=== PATIENT | male | born 1990 | race Asian ===

== ENCOUNTER 2023-01-21 14:52 | Inpatient (IN) ==
--- NOTE | 2023-01-21 15:20 | ED Triage Note ---
Date of Service January 21, 2023 History of Present Illness This patient was briefly evaluated while in triage. An abbreviated physical exam was performed. This patient is a 32-year-old Male who presents to the ED for evaluation of black stools. Was evaluated at [facility] and had heme + stool. Denies fever/chills, nausea/vomiting, abdominal pain, dizziness/lightheadedness Physical Exam Constitutional: alert and oriented x3. no acute distress. HEENT: normocephalic, atraumatic. normal conjunctiva.PERRLA. EOM's grossly intact. Respiratory: lungs are clear to auscultation without wheezes, rhonchi, or rales bilaterally. equal chest rise. normal respiratory effort, no accessory muscle use. Cardiovascular: normal heart sounds without murmur. regular rate and rhythm. GI: abdomen is soft, nontender. No palpable masses. No rebound tenderness or guarding. MSK: moves all 4 extremities spontaneously Psych:appropriate mood and affect. Initial orders for labs and / or imaging were placed and patient was placed in the waiting area until a bed is available. Please see further documentation for the full ED course.
[2023-01-21 16:49] LABS: Basophils # (auto) 0.03 K/uL (0.00-0.20); Basophils % (auto) 0.4 %; Eosinophils # (auto) 0.02 K/uL (0.00-0.50); Eosinophils % (auto) 0.3 %; Hematocrit (blood only) 31.3 % (42.0-52.0); Hemoglobin 10.5 g/dl (14.0-18.0); Immature Granulocytes # (auto) 0.01 K/uL (0.01-0.20); Immature Granulocytes % (auto) 0.1 %; Lymphocytes # (auto) 1.87 K/uL (1.20-3.40); Lymphocytes % (auto) 26.2 %; Mean Corpuscular Hemoglobin 28.3 pg (25.0-34.0); Mean Corpuscular Hgb Conc 33.5 g/dL (32.0-36.0); Mean Corpuscular Volume 84.4 fL (80.0-100.0); Monocytes # (auto) 0.39 K/uL (0.11-0.59); Monocytes % (auto) 5.5 %; Neutrophils # (auto) 4.82 K/uL (1.40-6.50); Neutrophils % (auto) 67.5 %; Platelet Count 310 K/uL (130-400); RDW Coefficient of Variation 12.8 % (11.5-14.5); RDW Standard Deviation 38.7 fL (36.4-46.3); Red Blood Count 3.71 M/uL (4.70-6.10); White Blood Count 7.14 K/ul (4.8-10.8)
[2023-01-21 17:04] LABS: Albumin Globulin Ratio 1.6 (0.9-2); Albumin Level 4.3 gm/dl (3.4-5.0); BUN Creatinine Ratio 30.5 (10-20); Bilirubin,Total 0.3 mg/dl (0.2-1.0); Calcium 8.5 mg/dl (8.6-10.3); Creatinine Clr Calc Pharmacy 142.4 ml/min; Est GFR (African American) 136.6 ml/min; Est GFR (Non-African American) 117.8 ml/min; Globulin 2.7 gm/dl (2.5-4.0); Potassium 3.7 mmol/L (3.5-5.1)
[2023-01-21] MEDS ORDERED: PANTOprazole 40 MG in SYRINGE 0 ML IV STA (17:26)
[2023-01-21] MEDS ORDERED: PANTOprazole 40 MG in DEXTROSE 5% MINI-B 100 ML IV STA (17:26)
[2023-01-21] MEDS ORDERED: SODIUM CHLORIDE 0.9% 1,000 ML IV SCH (17:30)
--- NOTE | 2023-01-21 18:46 | History & Physical Report ---
Date of Service January 21, 2023 Assessment & Plan (1) Gastrointestinal hemorrhage, unspecified: Plan: Patient presents with 2 day history of Dark stools in the setting of chronic Celebrex and with Diagnosis of Ankylosing Spondylitis - DDX: GIB acute vs. UC vs. other or combination of the above - HGB level is at 10 with previous level of 14, type and cross - follow HGB levels if decreases, becomes symptomatic, or actively hemorrhaging- will transfuse PRBC - BUN elevated to 25 - Blatchford score of 7 - PPI infusion already initiated in the EMD- will continue as already started - Received 1 liter of crystalloid in EMD with decrease in Tachycardia- hold on further crystalloid bolus, but continue with maintenance while NPO - Maintain 2 large bore IVs - Type and cross performed, consented for blood if needed - NPO at this time - Hold hypertensive medications until hemodynamics proven stable and Euvolemic - GI consultation appreciated (2) Anemia: Plan: Acute blood loss anemia secondary to GI bleed unspecified - blood consent obtained as delegated to me by Dr. Mcnally - Transfuse as above (3) Ankylosing spondylitis: Plan: Chronic controlled - will hold his Celebrex at this time - Could continue Sulfazine following GI evaluation (4) HTN (hypertension): Plan: Hold Amlodipine until hemodynamics proven stable History of Present Illness Chief Complaint: Dark stools Primary Care Provider: Julio Alexandra MD 32 [facility] from [facility], here as a student. Reports getting majority of care through PCP at [place]. He reports that he has medical history of Ankylosing Spondylitis and HTN. He is being followed by Rheumatology for his . Patient reports that over the past 2 days he has noticed black dark stools. These originally started as regular stool and progressed to being more soft. He endorses 3 black stools since yesterday. This is not associated with any abdominal pain or burning. Is associated with mild nausea without vomiting that started this afternoon. Patient reports feeling HR being little faster, but is without dizziness, feeling of going to pass out or weakness/fatigue. Patient endorses that he has not taken any other medications to include Motrin, Advil, or extra doses of Celebrex for back pain. He endorses that this has never happened before, denies other symptoms of abdominal pain, ulcerations in mouth or rectum, or periods of constipation and/or diarrhea. Reports no family history of cancer. Patient will be admitted to Medical Telemetry, as PPI infusion has already been started by the EMD, will continue this. NPO with GI consultation for evaluation for UGI vs. complications from (UC/Chron's). CODE: FULL Allergies Allergy/AdvReac Type Severity Reaction Status Date / Time No Known Allergies Allergy Verified 01/21/23 17:55 Home Medications Medication Instructions Recorded Confirmed Type amlodipine 10 mg tablet 10 mg PO DAILY 06/02/22 01/21/23 History celecoxib 100 mg capsule 100 mg PO BID #180 caps 09/25/22 01/21/23 Rx sulfasalazine 500 mg tablet 1,000 mg PO BID 01/21/23 01/21/23 History Past Med/Surg History Medical History (Updated 01/21/23 @ 19:07 by PILO Bailey) HTN (hypertension) Ankylosing spondylitis Family History (Updated 01/21/23 @ 19:03 by PILO Bailey) Other Heart disease Hypertension Denies family history of Rheumatoid arthritis Social History (Updated 06/02/22 @ 13:29 by Micky French DO) Smoking Status: Never smoker Hx Alcohol Use: No Hx Substance Use: No Preferred Language: Mohawk Communication Ability: Effective 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 Current Living Situation: Alone Other Information That Helps Us Care for You: No Feels Safe at Home: Yes Safety Concerns: Feels Safe At This Time Assistive Devices: Glasses Review of Systems Review of Systems: REVIEW OF SYSTEMS: Constitutional: No fever, sweats or chills Eyes: No diplopia, no worsening or blurred vision ENT: normal hearing, no trouble swallowing Respiratory: No cough, sputum, dyspnea at rest or on exertion Cardiovascular: No chest pain, tightness or palpitations Abdomen: (+) dark bowel movements, nauseam, No pain, vomiting, diarrhea or constipation Musculoskeletal: (+) ankylosing spondylitis, No joint pain, calf pain, swelling Neurologic: No weakness, numbness/tingling, or balance problems Psychiatric: No anxiety or depression Skin: No rash or itch Physical Exam Physical Exam: PHYSICAL EXAM: General: awake, alert, no apparent distress Head: Normocephalic, atraumatic ENT: PERRLA, EOMI, no pharyngeal exudate, mucous membranes moist Neuro: AAO x 3, speech clear and appropriate, strength intact bilaterally 5/5, sensation intact and equal all extremities and dermatomes, no pronator drift Chest: equal rise and fall of the chest, no accessory muscle use, no heaves or thrills, Clear to auscultation, on room air, Cardiac: Regular rate and rhythm, telemetry reviewed- sinus tachycardia, skin warm dry, cap refill <3 seconds, peripheral pulses +2 no JVD, no murmur, no edema GI: NABS x 4 quadrants, soft, nontender to palpation, no rebound, guarding or tenderness : Spontaneously voiding, no pain, no CVA tenderness, Extremities: Normal inspection, no peripheral edema or erythema, calfs nontender to palpation Psych: Normal mood and affect Skin: no rash or erythema Results & Data Results & Data Vital Signs (Past 12 Hours) Vital Signs Temp Pulse Pulse Resp BP BP Pulse Ox 01/21/23 16:07 127 H 12 121/80 96 01/21/23 15:14 36.9 C 139 H 16 125/74 99 O2 Del Method 01/21/23 16:07 01/21/23 15:14 Room Air Laboratory Results Abnormal lab results 01/21/23 Range/Units 16:13 RBC 3.71 L (4.70-6.10) M/uL Hgb 10.5 L (14.0-18.0) g/dl Hct 31.3 L (42.0-52.0) % BUN 25 H (6-23) mg/dl BUN/Creatinine Ratio 30.5 H (10-20) Glucose 103 H (70-99(Fasting)) mg/dl Calcium 8.5 L (8.6-10.3) mg/dl Diagnostic Findings Chest X-Ray 01/21/23 17:46 SINGLE VIEW CHEST CLINICAL HISTORY: Tachycardia. FINDINGS: An AP, portable, upright chest radiograph is obtained. No prior studies are available for comparison at the time of dictation. The cardiomediastinal silhouette is unremarkable. The lungs and pleural spaces are clear. No pneumothorax is seen. The bony thorax is grossly intact. IMPRESSION: No active disease in the chest. ACT 112: Negative or not required by law. Electronically signed by: Clint Jennings M.D. 01/21/2023 6:52 PM Medications Administered Pantoprazole Sodium 40 mg/ (Dextrose) 100 mls @ 20 mls/hr IV Q5H STA Stop: 01/21/23 22:25 Last Admin: 01/21/23 17:52 Dose: 8 mg/hr, 20 mls/hr Documented By: YANIRA Discontinued Medications Sodium Chloride (Nss) 1,000 mls @ 999 mls/hr IV .Q1H1M MINE Stop: 01/21/23 18:30 Last Admin: 01/21/23 17:52 Dose: 999 mls/hr Documented By: YANIRA Pantoprazole Sodium 40 mg/ (Syringe) 10 mls @ 5 mls/min IV NOW STA Stop: 01/21/23 17:27 Last Admin: 01/21/23 17:53 Dose: 5 mls/min Documented By: YANIRA ECG Additional Comments: none Code Status & VTE Plan VTE Prophylaxis Plan VTE Prophylaxis will be ordered: Yes Supervising Physician Co-Signing Physician Notes I personally saw and examined the patient. I verified all abernathy points and agree with PILO Child with the following exceptions and/or additions: 32 year old male presents to the ER with black stool on NSAIDs and sulfasalazine for ankylosing spondylitis. No chest pain, shortness of breath or dizziness. No hematochezia, nausea, vomiting or abdominal pain. No prior GI bleed. No heartburn. O/E HS RRR, no murmurs, Chest CTAB, Abdo SNT A/P Suspected UGI bleed - suspect secondary to NSAID use although given ankylosing spondylitis - ulcerative colitis remains a possibility. Trend Hgb. Pantoprazole IV bolus and drip. Consult gastroenterology. PG Care Time/CCT Total # of Minutes Spent Total Time Spent with Patient: Total time spent is greater than 50% in coordination of care (as documented) at patient's floor/unit and/or counseling patient: Coding Level of Care Code 48989 INT INP/OBS CARE 2/55MIN Diagnoses Gastrointestinal hemorrhage, unspecified K92.2 Anemia D64.9 Ankylosing spondylitis, unspecified site of spine M45.9 Ankylosing spondylitis location: unspecified site of spine HTN (hypertension) I10 (3) Ankylosing spondylitis Ankylosing spondylitis location: unspecified site of spine Qualified Code(s): M45.9 - Ankylosing spondylitis of unspecified sites in spine
--- NOTE | 2023-01-21 18:54 | XRay Report ---
SINGLE VIEW CHEST CLINICAL HISTORY: Tachycardia. FINDINGS: An AP, portable, upright chest radiograph is obtained. No prior studies are available for c omparison at the time of dictation. The cardiomediastinal silhouette is unremarkable. The lungs and p leural spaces are clear. No pneumothorax is seen. The bony thorax is grossly intact. IMPRESSION: No active disease in the chest. ACT 112: Negative or not required by law. Electronically signed by: Clint Jennings M.D. 01/21/2023 6:52 PM
[2023-01-21 20:09] LABS: Appearance Urine Clear (Clear); Bilirubin Urine Negative (Negative); Blood Urine Negative (Negative); Color Urine Dark Yellow; Glucose Urine UA Negative (Negative); Ketones Urine 1+ (Negative); Leukocyte Esterase Urine Negative (Negative); Nitrite Urine Negative (Negative); Protein Urine Negative (Negative); Specific Gravity Urine 1.025 (1.000-1.030); Urobilinogen Urine Negative (Negative); pH Urine 5.5 (4.5-7.5)
[2023-01-21] MEDS ORDERED: ONDANSETRON INJ 2 MG/ML 2 ML VIAL IV PRN (20:55)
[2023-01-21] MEDS ORDERED: ACETAMINOPHEN 325 MG TAB PO PRN (20:55)
[2023-01-21] MEDS ORDERED: PANTOPRAZOLE BOLUS/DRIP IV STA (20:55)
[2023-01-21] MEDS: LACTATED RINGER'S 1,000 ML IV SCH (21:01)
[2023-01-21] MEDS: PANTOprazole 40 MG in DEXTROSE 5% MINI-B 100 ML IV SCH (22:19)
[2023-01-21] MEDS ORDERED: PANTOprazole 40 MG in DEXTROSE 5% MINI-B 100 ML IV SCH (22:50)
[2023-01-22 00:35] LABS: Basophils # (auto) 0.02 K/uL (0.00-0.20); Basophils % (auto) 0.4 %; Eosinophils # (auto) 0.04 K/uL (0.00-0.50); Eosinophils % (auto) 0.7 %; Hematocrit (blood only) 25.7 % (42.0-52.0); Hemoglobin 8.5 g/dl (14.0-18.0); Lymphocytes # (auto) 2.18 K/uL (1.20-3.40); Lymphocytes % (auto) 38.8 %; Mean Corpuscular Hemoglobin 28.1 pg (25.0-34.0); Mean Corpuscular Hgb Conc 33.1 g/dL (32.0-36.0); Mean Corpuscular Volume 85.1 fL (80.0-100.0); Mean Platelet Volume 9.4 fL (9.4-12.4); Monocytes # (auto) 0.47 K/uL (0.11-0.59); Monocytes % (auto) 8.4 %; Neutrophils # (auto) 2.91 K/uL (1.40-6.50); Neutrophils % (auto) 51.7 %; Platelet Count 226 K/uL (130-400); RDW Coefficient of Variation 12.9 % (11.5-14.5); RDW Standard Deviation 39.4 fL (36.4-46.3); Red Blood Count 3.02 M/uL (4.70-6.10); White Blood Count 5.62 K/ul (4.8-10.8)
[2023-01-22] MEDS: PANTOprazole 40 MG in DEXTROSE 5% MINI-B 100 ML IV SCH ×4 (04:19→21:08)
[2023-01-22 07:11] LABS: Basophils # (auto) 0.01 K/uL (0.00-0.20); Basophils % (auto) 0.2 %; Eosinophils % (auto) 1.8 %; Hematocrit (blood only) 23.6 % (42.0-52.0); Hemoglobin 7.9 g/dl (14.0-18.0); Immature Granulocytes # (auto) 0.01 K/uL (0.01-0.20); Immature Granulocytes % (auto) 0.2 %; Mean Corpuscular Hgb Conc 33.5 g/dL (32.0-36.0); Mean Corpuscular Volume 83.7 fL (80.0-100.0); Mean Platelet Volume 9.3 fL (9.4-12.4); Monocytes # (auto) 0.48 K/uL (0.11-0.59); Monocytes % (auto) 8.7 %; Neutrophils # (auto) 2.82 K/uL (1.40-6.50); Neutrophils % (auto) 51.1 %; Platelet Count 214 K/uL (130-400); RDW Coefficient of Variation 13.1 % (11.5-14.5); RDW Standard Deviation 39.3 fL (36.4-46.3); Red Blood Count 2.82 M/uL (4.70-6.10); White Blood Count 5.52 K/ul (4.8-10.8)
[2023-01-22 07:30] LABS: BUN Creatinine Ratio 22.8 (10-20); Calcium 7.9 mg/dl (8.6-10.3); Creatinine Clr Calc Pharmacy 149.9 ml/min; Est GFR (African American) 138.7 ml/min; Est GFR (Non-African American) 119.7 ml/min; Magnesium 1.9 mg/dl (1.7-2.4); Potassium 3.4 mmol/L (3.5-5.1)
[2023-01-22 07:34] LABS: RBC Morphology Unremarkable
[2023-01-22] MEDS ORDERED: SODIUM CHLORIDE 0.9% 250 ML IV PRN ×2 (07:45→09:48)
--- NOTE | 2023-01-22 07:49 | Hospitalist Progress Note ---
Date of Service January 22, 2023 Assessment & Plan (1) Gastrointestinal hemorrhage, unspecified: Plan: Patient presents with 2 day history of Dark stools in the setting of chronic Celebrex and with Diagnosis of Ankylosing Spondylitis DDX: GIB acute (?h pylori, gastric vs duodenal ulcer vs. UC vs. other or combination of the above) Hgb 10 on admission, baseline prior in 14s 1L IVF bolus in ER w/ improvement in tachycardia, continue on maintenance fluids GI consulted NPO Type/screen, consent obtained on admission Hgb dropped to hgb 7.9, while some aspect dilutional from 1L IVF on admission/maintenance, but given borderline BP/drop <8, discussed w/ supervising provider and will type/cross/transfuse 2 units. Lasix 40mg IV x 1 w/ PRBC Continue PPI gtt GI consulted and planning for EGD this afternoon Repeat CBC following transfusion Remainder of plan to follow (2) Anemia: Plan: Acute blood loss anemia secondary to GI bleed unspecified Transfuse 2 u prbc for today iron panel checked prior to transfusion w/o MELISSA Monitor CBC following PRBC, and in AM, sooner if any bleeding reported (3) Ankylosing spondylitis: Plan: Chronic controlled - will hold his Celebrex at this time - Could continue Sulfazine following GI evaluation (4) HTN (hypertension): Plan: Hold Amlodipine until hemodynamics proven stable BP 116/74 Plan continued inpatient stay on protonix gtt, PRBC as above NPO for EGD this afternoon w/ GI Admission and Anticipated Discharge Date Admission Date: January 21, 2023 Supervising Physician Co-Signing Physician Notes The patient was not seen by me. The chart was reviewed. Case discussed with SALONI Hernandez. Agree with assessment and plan Subjective Eval this morning, no acute distress. No abdominal pain. Getting PRBC at present for hgb level, NPO for EGD w/ GI today. No fever/chills, chest pain, shortness of breath, nausea, vomiting. Of note, patient planning for flight back to [facility] on thursday. Questions/concerns addressed at this time. Physical Exam 2 Physical Exam: General: WD/WN male sitting up in bed, NAD HEENT: head normocephalic, atraumatic, mmm, trachea midline Resp; even/unlabored, no w/c/r, on room air CV: RRR, no significant m/r/g, no pitting edema/calf tenderness GI: +BS, soft/NT ; no garcia MSK/Neuro: no focal deficit, no slurred speech, answering questions appropriately strength equal bilaterally Psych: AOx3, cooperative with exam Results & Data Results & Data Vital Signs (Past 12 Hours) Vital Signs Temp Pulse Pulse Pulse Resp BP Pulse Ox 01/22/23 02:46 36.6 C 98 H 16 107/71 97 01/22/23 02:24 103 H 01/22/23 01:40 36.8 C 109 H 16 132/86 99 01/22/23 00:37 98 H 01/22/23 00:34 105 H 18 113/75 98 O2 Del Method 01/22/23 02:46 Room Air 01/22/23 02:24 01/22/23 01:40 Room Air 01/22/23 00:37 01/22/23 00:34 Room Air Laboratory Results 01/22/23 06:50 01/22/23 06:50 Diagnostic Findings Chest X-Ray 01/21/23 17:46 SINGLE VIEW CHEST CLINICAL HISTORY: Tachycardia. FINDINGS: An AP, portable, upright chest radiograph is obtained. No prior studies are available for comparison at the time of dictation. The cardiomediastinal silhouette is unremarkable. The lungs and pleural spaces are clear. No pneumothorax is seen. The bony thorax is grossly intact. IMPRESSION: No active disease in the chest. ACT 112: Negative or not required by law. Electronically signed by: Clint Jennings M.D. 01/21/2023 6:52 PM PG Care Time/CCT Total # of Minutes Spent Total Time Spent with Patient: Total time spent is greater than 50% in coordination of care (as documented) at patient's floor/unit and/or counseling patient: Coding Level of Care Code 25494 SUB INP/OBS CARE 3/50MIN Diagnoses Gastrointestinal hemorrhage, unspecified K92.2 Anemia D64.9 Ankylosing spondylitis, unspecified site of spine M45.9 Ankylosing spondylitis location: unspecified site of spine HTN (hypertension) I10 (3) Ankylosing spondylitis Ankylosing spondylitis location: unspecified site of spine Qualified Code(s): M45.9 - Ankylosing spondylitis of unspecified sites in spine
[2023-01-22] MEDS: LACTATED RINGER'S 1,000 ML IV SCH (08:35)
[2023-01-22] MEDS: POTASSIUM CHLORIDE / WTR 10 MEQ/100 ML PLCT IV SCH ×2 (08:35→12:10)
[2023-01-22 08:36] LABS: Ferritin 69.8 ng/ml (8-388)
--- NOTE | 2023-01-22 09:31 | Gastrointestinal Consultation ---
Date of Consultation January 22, 2023 Assessment & Plan (1) Ankylosing spondylitis: (2) Gastrointestinal hemorrhage, unspecified: (3) Anemia: Plan Suspect gastric or duodenal bulb ulcer related to chronic NSAID use vs H pylori vs other. -NPO. -Continue PPI ggt at 8 mg/hr. -EGD today with Dr. Carranza for further evaluation. Thank you for allowing me to participate in the care of this patient. If you have any questions or concerns, please do not hesitate to contact me. Supervising Physician Co-Signing Physician Notes I saw the patient and agree with the findings as documented by PILO Reece Proceed with EGD. risks/benefits and procedure discussed with patient, who agrees to proceed History of Present Illness Reason for Consultation: ?GIB Requesting Physician: PILO Child Attending Physician: Jaspreet Malcolm MD History of Present Illness Patient is a 32 y.o. male with a history of ankylosing spondylitis admitted with acute blood loss anemia and melena. 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 The patient endorses associated nausea and decreased appetite but no vomiting or abdominal pain. On arrival, the patient's H&H was 10.5/31.3 but has dropped to 7.9/23.6 today. He is ordered 1 unit PRBCs. Has been made NPO and placed on a PPI ggt. Last episode of melena was yesterday. Endorses symptoms of anemia such as palpitations, dizziness upon standing, and fatigue. Allergies Allergy/AdvReac Type Severity Reaction Status Date / Time No Known Allergies Allergy Verified 01/21/23 17:55 Home Medications Medication Instructions Recorded Confirmed Type amlodipine 10 mg tablet 10 mg PO DAILY 06/02/22 01/21/23 History celecoxib 100 mg capsule 100 mg PO BID #180 caps 09/25/22 01/21/23 Rx sulfasalazine 500 mg tablet 1,000 mg PO BID 01/21/23 01/21/23 History Patient History Medical History Encounter for pre-operative examination HTN (hypertension) Ankylosing spondylitis Family History Other Heart disease Hypertension Denies family history of Rheumatoid arthritis Social History Smoking Status: Never smoker Hx Alcohol Use: No Hx Substance Use: No Preferred Language: Wolof Communication Ability: Effective 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 Current Living Situation: Alone Other Information That Helps Us Care for You: No Feels Safe at Home: Yes Safety Concerns: Feels Safe At This Time Assistive Devices: Glasses Review of Systems Review of Systems: All systems reviewed & are unremarkable except as noted in HPI & below Physical Exam Constitutional: WD/WN, vitals as above Eyes: EOM intact bilaterally Neck: normal appearance Respiratory: normal respiratory effort, lungs clear to auscultation Cardiovascular: Rate/Rhythm: regular rate and regular rhythm Heart Sounds: no gallop and no murmur Gastrointestinal (Abdomen): normal bowel sounds, soft, nontender, no hepatosplenomegaly Inspection/Auscultation: abdomen not distended Musculoskeletal: Extremities: no cyanosis no lower extremity edema Skin: no rashes, warm and dry Neurologic: moves all extremities Psychiatric: A+Ox3, euthymic affect Results & Data Vital Signs (Past 12 Hours) Vital Signs Temp Pulse Pulse Pulse Resp BP BP 01/22/23 09:10 36.5 C 111 H 16 111/71 01/22/23 09:00 36.7 C 101 H 18 118/72 01/22/23 02:46 36.6 C 98 H 16 107/71 01/22/23 02:24 103 H 01/22/23 01:40 36.8 C 109 H 16 132/86 01/22/23 00:37 98 H 01/22/23 00:34 105 H 18 113/75 Pulse Ox O2 Del Method 01/22/23 09:10 97 01/22/23 09:00 97 Room Air 01/22/23 02:46 97 Room Air 01/22/23 02:24 01/22/23 01:40 99 Room Air 01/22/23 00:37 01/22/23 00:34 98 Room Air Diagnostic Findings Laboratory Results WBC 5.52 K/ul (4.8-10.8) 01/22/23 06:50 RBC 2.82 M/uL (4.70-6.10) L 01/22/23 06:50 Hgb 7.9 g/dl (14.0-18.0) L 01/22/23 06:50 Hct 23.6 % (42.0-52.0) L 01/22/23 06:50 MCV 83.7 fL (80.0-100.0) 01/22/23 06:50 MCH 28.0 pg (25.0-34.0) 01/22/23 06:50 MCHC 33.5 g/dL (32.0-36.0) 01/22/23 06:50 RDW Std Deviation 39.3 fL (36.4-46.3) 01/22/23 06:50 RDW Coeff of Elodia 13.1 % (11.5-14.5) 01/22/23 06:50 Plt Count 214 K/uL (130-400) 01/22/23 06:50 MPV 9.3 fL (9.4-12.4) L 01/22/23 06:50 Immature Gran % (Auto) 0.2 % 01/22/23 06:50 Neut % (Auto) 51.1 % 01/22/23 06:50 Lymph % (Auto) 38.0 % 01/22/23 06:50 [place] % (Auto) 8.7 % 01/22/23 06:50 Eos % (Auto) 1.8 % 01/22/23 06:50 Baso % (Auto) 0.2 % 01/22/23 06:50 Neut # (Auto) 2.82 K/uL (1.40-6.50) 01/22/23 06:50 Lymph # (Auto) 2.10 K/uL (1.20-3.40) 01/22/23 06:50 [place] # (Auto) 0.48 K/uL (0.11-0.59) 01/22/23 06:50 Eos # (Auto) 0.10 K/uL (0.00-0.50) 01/22/23 06:50 Baso # (Auto) 0.01 K/uL (0.00-0.20) 01/22/23 06:50 Immature Gran # (Auto) 0.01 K/uL (0.01-0.20) 01/22/23 06:50 RBC Morphology Unremarkable 01/22/23 06:50 Sodium 139 mmol/L (136-145) 01/22/23 06:50 Potassium 3.4 mmol/L (3.5-5.1) L 01/22/23 06:50 Chloride 109 mmol/L (98-107) H 01/22/23 06:50 Carbon Dioxide 26 mmol/L (21-32) 01/22/23 06:50 Anion Gap 4 (3-11) 01/22/23 06:50 BUN 18 mg/dl (6-23) 01/22/23 06:50 Creatinine 0.79 mg/dl (0.6-1.4) 01/22/23 06:50 Est Cr Clr Drug Dosing 149.9 ml/min 01/22/23 06:50 Est GFR ( Amer) 138.7 ml/min 01/22/23 06:50 Est GFR (Non-Af Amer) 119.7 ml/min 01/22/23 06:50 BUN/Creatinine Ratio 22.8 (10-20) H 01/22/23 06:50 Glucose 92 mg/dl (70-99(Fasting)) 01/22/23 06:50 Calcium 7.9 mg/dl (8.6-10.3) L 01/22/23 06:50 Magnesium 1.9 mg/dl (1.7-2.4) 01/22/23 06:50 Iron 54 mcg/dl (35-175) 01/22/23 06:50 TIBC 235 mcg/dl (250-450) L 01/22/23 06:50 Unsaturated IBC 181 mcg/dl (155-355) 01/22/23 06:50 Transferrin % Sat 23 % (20-50) 01/22/23 06:50 Ferritin 69.8 ng/ml (8-388) 01/22/23 06:50 Total Bilirubin 0.3 mg/dl (0.2-1.0) 01/21/23 16:13 AST 15 U/L (13-39) 01/21/23 16:13 ALT 18 U/L (7-52) 01/21/23 16:13 Alkaline Phosphatase 77 U/L (34-104) 01/21/23 16:13 Total Protein 7.0 gm/dl (6.0-8.3) 01/21/23 16:13 Albumin 4.3 gm/dl (3.4-5.0) 01/21/23 16:13 Globulin 2.7 gm/dl (2.5-4.0) 01/21/23 16:13 Albumin/Globulin Ratio 1.6 (0.9-2) 01/21/23 16:13 Lipase 18 U/L (11-82) 01/21/23 16:13 Urine Color Dark Yellow 01/21/23 19:38 Urine Appearance Clear (Clear) 01/21/23 19:38 Urine pH 5.5 (4.5-7.5) 01/21/23 19:38 Ur Specific [place] 1.025 (1.000-1.030) 01/21/23 19:38 Urine Protein Negative (Negative) 01/21/23 19:38 Urine Glucose (UA) Negative (Negative) 01/21/23 19:38 Urine Ketones 1+ (Negative) H 01/21/23 19:38 Urine Blood Negative (Negative) 01/21/23 19:38 Urine Nitrite Negative (Negative) 01/21/23 19:38 Urine Bilirubin Negative (Negative) 01/21/23 19:38 Urine Urobilinogen Negative (Negative) 01/21/23 19:38 Ur Leukocyte Esterase Negative (Negative) 01/21/23 19:38 Blood Type AB Positive 01/21/23 18:06 Blood Type Recheck AB Positive 01/22/23 00:21 Antibody Screen NEGATIVE 01/21/23 18:06 Crossmatch See Detail 01/21/23 18:06 Impressions Chest X-Ray 01/21/23 17:46 SINGLE VIEW CHEST CLINICAL HISTORY: Tachycardia. FINDINGS: An AP, portable, upright chest radiograph is obtained. No prior studies are available for comparison at the time of dictation. The cardiomediastinal silhouette is unremarkable. The lungs and pleural spaces are clear. No pneumothorax is seen. The bony thorax is grossly intact. IMPRESSION: No active disease in the chest. ACT 112: Negative or not required by law. Electronically signed by: Clint Jennings M.D. 01/21/2023 6:52 PM PG Care Time/CCT Total # of Minutes Spent Total Time Spent with Patient: Total time spent is greater than 50% in coordination of care (as documented) at patient's floor/unit and/or counseling patient: Coding Level of Care Code 63041 IN/OBS CONSULT LVL 4,60M Diagnoses Ankylosing spondylitis, unspecified site of spine M45.9 Ankylosing spondylitis location: unspecified site of spine Gastrointestinal hemorrhage, unspecified K92.2 Anemia D64.9 (1) Ankylosing spondylitis Ankylosing spondylitis location: unspecified site of spine Qualified Code(s): M45.9 - Ankylosing spondylitis of unspecified sites in spine
--- NOTE | 2023-01-22 09:33 | Anesthesiology Consultation ---
Date of Service January 22, 2023 Assessment & Plan (1) Encounter for pre-operative examination: Chart Review Chart Review: Acceptable Risk for Surgery, Patient NOT seen in Pre Admission Testing and entry level initiated Consults Requested none Proposed Anesthesia Anesthesia Type: MAC History Surgery Operation Date: 01/22/23 16:30 Proposed Procedures p Esophagogastroduodenoscopy Dr. Dillon Carranza MD Height/Weight Height: 5 ft 8.9 in Weight: 89.9 kg Allergies Allergy/AdvReac Type Severity Reaction Status Date / Time No Known Allergies Allergy Verified 01/21/23 17:55 Medications Home Medications Medication Instructions Recorded Confirmed Last Taken amlodipine 10 mg tablet 10 mg PO DAILY 06/02/22 01/21/23 01/21/23 celecoxib 100 mg capsule 100 mg PO BID #180 caps 09/25/22 01/21/23 01/21/23 08:00 sulfasalazine 500 mg tablet 1,000 mg PO BID 01/21/23 01/21/23 01/21/23 08:00 Active Medications Generic Name Dose Route Start Last Admin Trade Name Donteq PRN Reason Stop Dose Admin Lactated Ringer's 1,000 mls @ 90 mls/hr 01/21/23 20:55 01/22/23 08:35 Lr IV 02/20/23 20:54 90 mls/hr .[id number] MINE Administration Pantoprazole Sodium 40 mg/ 100 mls @ 20 mls/hr 01/21/23 22:30 01/22/23 04:19 Dextrose IV 02/20/23 22:29 8 mg/hr Q5H MINE 20 mls/hr Administration 8 MG/HR Potassium Chloride 10 meq in 100 mls @ 100 mls/hr 01/22/23 08:00 01/22/23 08:35 K Pradip / Wtr IV 01/22/23 09:59 100 mls/hr Q1H MINE Administration Past Medical History Medical History (Updated 01/22/23 @ 09:34 by Satya Strickland MD) Encounter for pre-operative examination HTN (hypertension) Ankylosing spondylitis Past Family History Family History Other Heart disease Hypertension Denies family history of Rheumatoid arthritis Social History Smoking Status: Never smoker Hx Alcohol Use: No Hx Substance Use: No Physical Exam Vital Signs Last Vital Signs Temp 36.5 C 01/22/23 09:10 Pulse 111 H 01/22/23 09:10 Resp 16 01/22/23 09:10 BP 111/71 01/22/23 09:10 Pulse Ox 97 01/22/23 09:10 O2 Del Method Room Air 01/22/23 09:00 Testing Laboratory Results 01/22/23 06:50 01/22/23 06:50 Urine Color Dark Yellow 01/21/23 19:38 Urine Appearance Clear (Clear) 01/21/23 19:38 Urine pH 5.5 (4.5-7.5) 01/21/23 19:38 Ur Specific [place] 1.025 (1.000-1.030) 01/21/23 19:38 Urine Protein Negative (Negative) 01/21/23 19:38 Urine Glucose (UA) Negative (Negative) 01/21/23 19:38 Urine Ketones 1+ (Negative) H 01/21/23 19:38 Urine Nitrite Negative (Negative) 01/21/23 19:38 Ur Leukocyte Esterase Negative (Negative) 01/21/23 19:38 Blood Type AB Positive 01/21/23 18:06 Antibody Screen NEGATIVE 01/21/23 18:06 Electrocardiogram Date: 01/21/23 Sinus tachycardia Otherwise normal ECG No previous ECGs available 25mm/s10mm/[id number] 243CID: [id number] by: REFERRED SELF Unconfirmed Vent. rate 106 BPM OK interval 154 ms QRS duration 90 ms QT/QTc 334/443 ms Chest X-Ray Date: 01/21/23 SINGLE VIEW CHEST CLINICAL HISTORY: Tachycardia. FINDINGS: An AP, portable, upright chest radiograph is obtained. No prior studies are available for comparison at the time of dictation. The cardiomediastinal silhouette is unremarkable. The lungs and pleural spaces are clear. No pneumothorax is seen. The bony thorax is grossly intact. IMPRESSION: No active disease in the chest.
[2023-01-22] MEDS ORDERED: FUROSEMIDE 40 MG/4 ML VIAL IV ONE (11:16)
--- NOTE | 2023-01-22 13:59 | Electrocardiogram Report ---
Test Reason : Blood Pressure : / mmHG Vent. Rate : 106 BPM Atrial Rate : 106 BPM P-R Int : 154 ms QRS Dur : 090 ms QT Int : 334 ms P-R-T Axes : 049 039 032 degrees QTc Int : 443 ms Sinus tachycardia Otherwise normal ECG No previous ECGs available Confirmed by Satya Yeung ([id number]) on 01/22/2023 1:59:05 PM Referred By: REFERRED SELF Confirmed By:Wood Yeung
[2023-01-22] MEDS ORDERED: PROPOFOL IV EMULSION 10 MG/ML 20 ML VIAL IV ONE ×2 (15:16→15:39)
[2023-01-22] MEDS ORDERED: LIDOCAINE 2% 2 ML VIAL/AMP(20MG/ML) INFIL ONE (15:16)
[2023-01-22] MEDS ORDERED: ONDANSETRON INJ 2 MG/ML 2 ML VIAL ONE (15:16)
[2023-01-22] MEDS ORDERED: GLYCOPYRROLATE 0.2 MG/ML VIAL ONE (15:16)
--- NOTE | 2023-01-22 15:49 | GI REPORT ---
Patient Name: Mariano Arias Procedure Date: 01/22/2023 3:31 PM Date of : 1990 Admit Type: Inpatient Age: 32 Gender: Male Attending MD: Artur Carranza MD, Procedure: Upper GI endoscopy Providers: Artur Carranza MD Referring MD: Referred Self Indications: Melena Medicines: Monitored Anesthesia Care Complications: No immediate complications. Estimated blood loss: None. Estimated Blood Loss: Estimated blood loss: none. Procedure: Pre-Anesthesia Assessment: - Prior Anticoagulants: The patient has taken no anticoagulant or antiplatelet agents. - ASA Grade Assessment: III - A patient with severe systemic disease. After obtaining informed consent, the endoscope was passed under direct vision. Throughout the procedure, the patient's blood pressure, pulse, and oxygen saturations were monitored continuously. The Endoscope was introduced through the mouth, and advanced to the second part of duodenum. The upper GI endoscopy was accomplished without difficulty. The patient tolerated the procedure well. Findings: The examined esophagus was normal. The entire examined stomach was normal. Biopsies were taken with a cold forceps for Helicobacter pylori testing. Estimated blood loss: none. One oozing cratered duodenal ulcer was found in the duodenal bulb with surrounding abnormal mucosa. Area was successfully injected with 3 mL of a 0.1 mg/mL solution of epinephrine for hemostasis. Coagulation for hemostasis using bipolar probe was successful. Estimated blood loss: none. Biopsies were taken with a cold forceps for histology. Estimated blood loss: none. Impression: - Normal esophagus. - Normal stomach. Biopsied. - Oozing duodenal ulcer. Injected. Treated with bipolar cautery. Biopsied. Recommendation: - [facility] care. - Clear liquid diet today. advance as tolerated tomorrow if stable - Await pathology results. -avoid NSAIDS indefinitely as I suspect this was NSAID induced ulcer. - complete 72 hours of protonix drip then take protonix 40 mg BID for 2 weeks then can decrease to daily for a minimum of 8 weeks total altogether Artur Carranza MD 01/22/2023 3:49:30 PM This report has been signed electronically. Note Initiated On: 01/22/2023 3:31 PM Number of Addenda: 0 I attest to the content of the Intraoperative Record and orders documented therein, exceptions below {[id number]}
--- NOTE | 2023-01-22 16:25 | Anesthesiology Progress Note ---
Date of Service January 22, 2023 Anesthesia Post Procedure Vital Signs Vital Signs: Temp Pulse Pulse Pulse Resp BP BP 01/22/23 16:09 106 H 16 124/83 01/22/23 16:03 106 H 16 110/70 01/22/23 15:48 119 H 16 115/66 01/22/23 14:32 36.7 C 103 H 16 134/88 01/22/23 14:23 37.0 C 101 H 16 131/81 01/22/23 13:50 36.8 C 102 H 16 114/76 01/22/23 12:50 36.7 C 103 H 16 115/77 01/22/23 12:20 36.7 C 103 H 16 119/79 01/22/23 12:10 36.9 C 99 H 17 106/71 01/22/23 12:05 36.9 C 99 H 16 106/71 01/22/23 11:51 36.9 C 97 H 16 111/74 01/22/23 11:46 36.8 C 98 H 16 117/77 01/22/23 11:28 36.7 C 102 H 16 111/75 01/22/23 11:15 36.9 C 97 H 16 111/74 01/22/23 10:13 36.7 C 92 H 16 116/74 01/22/23 09:43 36.6 C 109 H 16 109/73 01/22/23 09:28 36.9 C 71 16 111/71 01/22/23 09:10 36.5 C 111 H 16 111/71 01/22/23 09:00 36.7 C 101 H 18 118/72 01/22/23 02:46 36.6 C 98 H 16 107/71 01/22/23 02:24 103 H 01/22/23 01:40 36.8 C 109 H 16 132/86 01/22/23 00:37 98 H 01/22/23 00:34 105 H 18 113/75 01/21/23 19:02 102 H 20 117/60 01/21/23 19:02 102 H 20 Pulse Ox O2 Del Method 01/22/23 16:09 100 Room Air 01/22/23 16:03 98 Room Air 01/22/23 15:48 96 Room Air 01/22/23 14:32 99 01/22/23 14:23 99 Room Air 01/22/23 13:50 99 01/22/23 12:50 97 01/22/23 12:20 98 01/22/23 12:10 97 Room Air 01/22/23 12:05 97 01/22/23 11:51 99 Room Air 01/22/23 11:46 98 01/22/23 11:28 98 01/22/23 11:15 99 01/22/23 10:13 97 01/22/23 09:43 97 01/22/23 09:28 97 01/22/23 09:10 97 01/22/23 09:00 97 Room Air 01/22/23 02:46 97 Room Air 01/22/23 02:24 01/22/23 01:40 99 Room Air 01/22/23 00:37 01/22/23 00:34 98 Room Air 01/21/23 19:02 100 Room Air 01/21/23 19:02 100 Room Air Transfer of Care Handoff Completed per policy Notes Mental Status: alert / awake / arousable Patient Amnestic to Procedure: Yes Nausea / Vomiting: adequately controlled Pain: adequately controlled Airway Patency, RR, SpO2: stable & adequate BP & HR: stable & adequate Hydration State: stable & adequate Anesthetic Complications: no major complications apparent
[2023-01-22] MEDS: SUCRALFATE 1 GM TAB PO SCH ×2 (17:39→20:31)
[2023-01-22 19:19] LABS: Hematocrit (blood only) 34.2 % (42.0-52.0); Hemoglobin 11.4 g/dl (14.0-18.0); Mean Corpuscular Hemoglobin 28.8 pg (25.0-34.0); Mean Corpuscular Hgb Conc 33.3 g/dL (32.0-36.0); Mean Corpuscular Volume 86.4 fL (80.0-100.0); Mean Platelet Volume 9.9 fL (9.4-12.4); Platelet Count 242 K/uL (130-400); RDW Coefficient of Variation 12.9 % (11.5-14.5); RDW Standard Deviation 39.7 fL (36.4-46.3); Red Blood Count 3.96 M/uL (4.70-6.10); White Blood Count 6.11 K/ul (4.8-10.8)
[2023-01-23] MEDS: PANTOprazole 40 MG in DEXTROSE 5% MINI-B 100 ML IV SCH ×5 (02:24→19:09)
[2023-01-23] MEDS: LACTATED RINGER'S 1,000 ML IV SCH ×2 (05:17→06:20)
[2023-01-23 07:17] LABS: Basophils # (auto) 0.02 K/uL (0.00-0.20); Basophils % (auto) 0.4 %; Eosinophils # (auto) 0.08 K/uL (0.00-0.50); Eosinophils % (auto) 1.5 %; Hematocrit (blood only) 28.8 % (42.0-52.0); Hemoglobin 9.7 g/dl (14.0-18.0); Immature Granulocytes # (auto) 0.01 K/uL (0.01-0.20); Immature Granulocytes % (auto) 0.2 %; Lymphocytes # (auto) 1.77 K/uL (1.20-3.40); Lymphocytes % (auto) 32.4 %; Mean Corpuscular Hemoglobin 28.3 pg (25.0-34.0); Mean Corpuscular Hgb Conc 33.7 g/dL (32.0-36.0); Mean Platelet Volume 9.7 fL (9.4-12.4); Monocytes % (auto) 9.2 %; Neutrophils # (auto) 3.08 K/uL (1.40-6.50); Neutrophils % (auto) 56.3 %; Platelet Count 219 K/uL (130-400); RDW Coefficient of Variation 13.2 % (11.5-14.5); RDW Standard Deviation 39.5 fL (36.4-46.3); Red Blood Count 3.43 M/uL (4.70-6.10); White Blood Count 5.46 K/ul (4.8-10.8)
[2023-01-23 07:30] LABS: BUN Creatinine Ratio 11.4 (10-20); Calcium 8.2 mg/dl (8.6-10.3); Creatinine Clr Calc Pharmacy 135.6 ml/min; Est GFR (African American) 132.7 ml/min; Est GFR (Non-African American) 114.5 ml/min; Magnesium 1.9 mg/dl (1.7-2.4); Potassium 3.2 mmol/L (3.5-5.1)
[2023-01-23] MEDS ORDERED: POTASSIUM CHLORIDE CRTAB 20 MEQ TABCR PO STA (07:48)
--- NOTE | 2023-01-23 07:54 | Hospitalist Progress Note ---
Date of Service January 23, 2023 Assessment & Plan (1) Duodenal bulb ulcer: Plan: Patient presents with 2 day history of Dark stools in the setting of chronic Celebrex and with Diagnosis of Ankylosing Spondylitis Differential dx UGIB (gastric vs duodenal, UC vs other) Hgb 10 on admission, baseline prior in 14s 1L IVF bolus in ER w/ improvement in tachycardia, continue on maintenance fluids GI consulted Type/screen, consent obtained on admission Hgb to 7.9, 2u PRBC on 01/22 provided w/ IV lasix s/p EGD which noted oozing cratered duodenal ulcer in the duodenal bulb with abnormal surrounding mucosa. Treated with injection epi/coagulation for hemostasis w/ bipolar probe. H pylori testing obtained/path pending To continue protonix gtt x 72 hours (through PM 12/), then transition to 40mg BID x 2 weeks then once daily x 8 weeks thereafter per GI. --> Suspect BID 4-8 weeks, discussion w/ PCP if any resumption of celebrex in future may require lifelong PPI therapy to prevent repeated issues Hgb this morning 9.7 and had been on continuous IVF, suspect appropriate rise from 7.9--> 9.7 while on IVF overnight, discontinued this morning Diet advanced to full liquid diet, advance as tolerated CM assisting with form for flight rescheduling Avoidance of NSAIDs Monitor for any further bleeding/CBC in AM (2) Gastrointestinal hemorrhage, unspecified: Plan: as above, 2nd to duodenal ulcer, s/p intervention (3) Anemia: Plan: Acute blood loss anemia secondary to GI bleed unspecified Transfuse 2 u prbc for today iron panel checked prior to transfusion w/o MELISSA -- stable CBC w/ hgb 9.7, IVF discontinued and will monitor in AM for stability/sooner if any bleeding occurs. (4) Ankylosing spondylitis: Plan: Chronic controlled - will hold his Celebrex at this time -- avoiding NSAIDs at present for above Resumed sulfasalazine (5) HTN (hypertension): Plan: Hold Amlodipine until hemodynamics proven stable BP 115/75 (6) Hypokalemia: Plan: low prior, replacement ordered. Suspect low this AM from PO intake/lasix w/ PRBC 01/22 40meq PO x 1 for today, monitor BMP in AM Plan continued inpatient stay, transition to PO PPI BID after 72 hours Admission and Anticipated Discharge Date Admission Date: January 21, 2023 Supervising Physician Co-Signing Physician Notes The patient was not seen by me. The chart was reviewed. Case discussed with SALONI Hernandez. Agree with assessment and plan Subjective Evaluated this morning, feeling well. No further bowel movements. Hgb stable w/ 2 units. Discussed continued protonix gtt, he is agreeable to stay. Rescheduling his flight for next week, will see about CM assisting with form for flight to reschedule to not get penalized for cancelling. No fever/chills, chest pain, shortness of breath, abdominal pain, nausea/vomiting. Physical Exam 2 Physical Exam: General: WD/WN male sitting up in bed, NAD HEENT: head normocephalic, atraumatic, mmm, trachea midline Resp; even/unlabored, no w/c/r, on room air CV: RRR, no significant m/r/g, no pitting edema/calf tenderness GI: +BS, soft/NT ; no garcia MSK/Neuro: no focal deficit, no slurred speech, answering questions appropriately strength equal bilaterally Psych: AOx3, cooperative with exam Results & Data Results & Data Vital Signs (Past 12 Hours) Vital Signs Temp Pulse Pulse Pulse Resp BP BP 01/23/23 07:42 83 01/23/23 07:39 36.7 C 85 18 115/75 01/23/23 02:51 36.8 C 76 18 108/67 01/22/23 23:20 36.6 C 88 18 116/74 Pulse Ox O2 Del Method 01/23/23 07:42 01/23/23 07:39 96 Room Air 01/23/23 02:51 95 Room Air 01/22/23 23:20 97 Room Air Laboratory Results 01/23/23 06:44 01/23/23 06:44 PG Care Time/CCT Total # of Minutes Spent Total Time Spent with Patient: Total time spent is greater than 50% in coordination of care (as documented) at patient's floor/unit and/or counseling patient: Coding Level of Care Code 21956 SUB INP/OBS CARE 3/50MIN Diagnoses Duodenal bulb ulcer K26.9 Gastrointestinal hemorrhage, unspecified K92.2 Anemia D64.9 Ankylosing spondylitis, unspecified site of spine M45.9 Ankylosing spondylitis location: unspecified site of spine HTN (hypertension) I10 Hypokalemia E87.6 (4) Ankylosing spondylitis Ankylosing spondylitis location: unspecified site of spine Qualified Code(s): M45.9 - Ankylosing spondylitis of unspecified sites in spine
[2023-01-23] MEDS: SUCRALFATE 1 GM TAB PO SCH ×4 (08:00→21:11)
--- NOTE | 2023-01-23 09:33 | Gastroenterology Progress Note ---
Date of Service January 23, 2023 Assessment & Plan (1) Ankylosing spondylitis: (2) Gastrointestinal hemorrhage, unspecified: (3) Anemia: (4) Duodenal bulb ulcer: Plan Suspect gastric or duodenal bulb ulcer related to chronic NSAID use vs H pylori vs other. -Clear liquid diet today with advancement as tolerated. -Continue PPI ggt at 8 mg/hr for a total of 72 hours, then start Pantoprazole 40 mg BID. -Discussed avoidance of NSAIDs, including Celebrex. -Outpatient follow up in our office in 1 week. Admission and Anticipated Discharge Date Admission Date: January 21, 2023 Supervising Physician Co-Signing Physician Notes I saw the patient and agree with the findings as documented by PILO Reece Subjective Patient reports feeling well this morning after EGD yesterday with findings of duodenal ulcer with oozing s/p hemostasis with Epi and cautery. Despite the drop in hemoglobin this morning, he denies any overt GIB sx. Has not had a bowel movement since the procedure. Continues PPI ggt. Review of Systems Constitutional: no problem reported Gastrointestinal: as per Subjective / HPI Physical Exam Constitutional: WD/WN, vitals as above Respiratory: normal respiratory effort, lungs clear to auscultation Cardiovascular: RRR, no murmur, no edema Gastrointestinal (Abdomen): normal bowel sounds, soft, nontender, no hepatosplenomegaly Psychiatric: A+Ox3, euthymic affect Results & Data Results & Data Vital Signs (Past 12 Hours) Vital Signs Temp Pulse Pulse Pulse Resp BP BP 01/23/23 07:42 83 01/23/23 07:39 36.7 C 85 18 115/75 01/23/23 02:51 36.8 C 76 18 108/67 01/22/23 23:20 36.6 C 88 18 116/74 Pulse Ox O2 Del Method 01/23/23 07:42 01/23/23 07:39 96 Room Air 01/23/23 02:51 95 Room Air 01/22/23 23:20 97 Room Air Diagnostic Findings Laboratory Results WBC 5.46 K/ul (4.8-10.8) 01/23/23 06:44 RBC 3.43 M/uL (4.70-6.10) L 01/23/23 06:44 Hgb 9.7 g/dl (14.0-18.0) L 01/23/23 06:44 Hct 28.8 % (42.0-52.0) L 01/23/23 06:44 MCV 84.0 fL (80.0-100.0) 01/23/23 06:44 MCH 28.3 pg (25.0-34.0) 01/23/23 06:44 MCHC 33.7 g/dL (32.0-36.0) 01/23/23 06:44 RDW Std Deviation 39.5 fL (36.4-46.3) 01/23/23 06:44 RDW Coeff of [place] 13.2 % (11.5-14.5) 01/23/23 06:44 Plt Count 219 K/uL (130-400) 01/23/23 06:44 MPV 9.7 fL (9.4-12.4) 01/23/23 06:44 Immature Gran % (Auto) 0.2 % 01/23/23 06:44 Neut % (Auto) 56.3 % 01/23/23 06:44 Lymph % (Auto) 32.4 % 01/23/23 06:44 [place] % (Auto) 9.2 % 01/23/23 06:44 Eos % (Auto) 1.5 % 01/23/23 06:44 Baso % (Auto) 0.4 % 01/23/23 06:44 Neut # (Auto) 3.08 K/uL (1.40-6.50) 01/23/23 06:44 Lymph # (Auto) 1.77 K/uL (1.20-3.40) 01/23/23 06:44 [place] # (Auto) 0.50 K/uL (0.11-0.59) 01/23/23 06:44 Eos # (Auto) 0.08 K/uL (0.00-0.50) 01/23/23 06:44 Baso # (Auto) 0.02 K/uL (0.00-0.20) 01/23/23 06:44 Immature Gran # (Auto) 0.01 K/uL (0.01-0.20) 01/23/23 06:44 RBC Morphology Unremarkable 01/22/23 06:50 Sodium 140 mmol/L (136-145) 01/23/23 06:44 Potassium 3.2 mmol/L (3.5-5.1) L 01/23/23 06:44 Chloride 106 mmol/L (98-107) 01/23/23 06:44 Carbon Dioxide 28 mmol/L (21-32) 01/23/23 06:44 Anion Gap 6 (3-11) 01/23/23 06:44 BUN 10 mg/dl (6-23) 01/23/23 06:44 Creatinine 0.88 mg/dl (0.6-1.4) 01/23/23 06:44 Est Cr Clr Drug Dosing 135.6 ml/min 01/23/23 06:44 Est GFR ( Amer) 132.7 ml/min 01/23/23 06:44 Est GFR (Non-Af Amer) 114.5 ml/min 01/23/23 06:44 BUN/Creatinine Ratio 11.4 (10-20) 01/23/23 06:44 Glucose 91 mg/dl (70-99(Fasting)) 01/23/23 06:44 Calcium 8.2 mg/dl (8.6-10.3) L 01/23/23 06:44 Magnesium 1.9 mg/dl (1.7-2.4) 01/23/23 06:44 Iron 54 mcg/dl (35-175) 01/22/23 06:50 TIBC 235 mcg/dl (250-450) L 01/22/23 06:50 Unsaturated IBC 181 mcg/dl (155-355) 01/22/23 06:50 Transferrin % Sat 23 % (20-50) 01/22/23 06:50 Ferritin 69.8 ng/ml (8-388) 01/22/23 06:50 Total Bilirubin 0.3 mg/dl (0.2-1.0) 01/21/23 16:13 AST 15 U/L (13-39) 01/21/23 16:13 ALT 18 U/L (7-52) 01/21/23 16:13 Alkaline Phosphatase 77 U/L (34-104) 01/21/23 16:13 Total Protein 7.0 gm/dl (6.0-8.3) 01/21/23 16:13 Albumin 4.3 gm/dl (3.4-5.0) 01/21/23 16:13 Globulin 2.7 gm/dl (2.5-4.0) 01/21/23 16:13 Albumin/Globulin Ratio 1.6 (0.9-2) 01/21/23 16:13 Lipase 18 U/L (11-82) 01/21/23 16:13 Urine Color Dark Yellow 01/21/23 19:38 Urine Appearance Clear (Clear) 01/21/23 19:38 Urine pH 5.5 (4.5-7.5) 01/21/23 19:38 Ur Specific [place] 1.025 (1.000-1.030) 01/21/23 19:38 Urine Protein Negative (Negative) 01/21/23 19:38 Urine Glucose (UA) Negative (Negative) 01/21/23 19:38 Urine Ketones 1+ (Negative) H 01/21/23 19:38 Urine Blood Negative (Negative) 01/21/23 19:38 Urine Nitrite Negative (Negative) 01/21/23 19:38 Urine Bilirubin Negative (Negative) 01/21/23 19:38 Urine Urobilinogen Negative (Negative) 01/21/23 19:38 Ur Leukocyte Esterase Negative (Negative) 01/21/23 19:38 Blood Type AB Positive 01/21/23 18:06 Blood Type Recheck AB Positive 01/22/23 00:21 Antibody Screen NEGATIVE 01/21/23 18:06 Crossmatch See Detail 01/21/23 18:06 Impressions Chest X-Ray 01/21/23 17:46 SINGLE VIEW CHEST CLINICAL HISTORY: Tachycardia. FINDINGS: An AP, portable, upright chest radiograph is obtained. No prior studies are available for comparison at the time of dictation. The cardiomediastinal silhouette is unremarkable. The lungs and pleural spaces are clear. No pneumothorax is seen. The bony thorax is grossly intact. IMPRESSION: No active disease in the chest. ACT 112: Negative or not required by law. Electronically signed by: Clint Jennings M.D. 01/21/2023 6:52 PM PG Care Time/CCT Total # of Minutes Spent Total Time Spent with Patient: Total time spent is greater than 50% in coordination of care (as documented) at patient's floor/unit and/or counseling patient: Coding Level of Care Code 95017 SUB INP/OBS CARE 3/50MIN Diagnoses Ankylosing spondylitis, unspecified site of spine M45.9 Ankylosing spondylitis location: unspecified site of spine Gastrointestinal hemorrhage, unspecified K92.2 Anemia D64.9 Duodenal bulb ulcer K26.9 (1) Ankylosing spondylitis Ankylosing spondylitis location: unspecified site of spine Qualified Code(s): M45.9 - Ankylosing spondylitis of unspecified sites in spine
[2023-01-23] MEDS: sulfaSALAzine 500 MG TABLET PO SCH (21:11)
[2023-01-24] MEDS: PANTOprazole 40 MG in DEXTROSE 5% MINI-B 100 ML IV SCH ×4 (02:20→15:19)
[2023-01-24 05:53] LABS: Hematocrit (blood only) 31.9 % (42.0-52.0); Hemoglobin 10.5 g/dl (14.0-18.0); Mean Corpuscular Hemoglobin 28.9 pg (25.0-34.0); Mean Corpuscular Hgb Conc 32.9 g/dL (32.0-36.0); Mean Corpuscular Volume 87.9 fL (80.0-100.0); Mean Platelet Volume 9.8 fL (9.4-12.4); Platelet Count 266 K/uL (130-400); RDW Coefficient of Variation 13.3 % (11.5-14.5); RDW Standard Deviation 41.3 fL (36.4-46.3); Red Blood Count 3.63 M/uL (4.70-6.10); White Blood Count 4.95 K/ul (4.8-10.8)
[2023-01-24 06:04] LABS: BUN Creatinine Ratio 7.2 (10-20); Calcium 8.8 mg/dl (8.6-10.3); Est GFR (African American) 120.1 ml/min; Est GFR (Non-African American) 103.6 ml/min; Magnesium 2.1 mg/dl (1.7-2.4); Potassium 3.6 mmol/L (3.5-5.1)
--- NOTE | 2023-01-24 07:50 | Hospitalist Progress Note ---
Date of Service January 24, 2023 Assessment & Plan (1) Duodenal bulb ulcer: Plan: Patient presents with 2 day history of Dark stools in the setting of chronic Celebrex and with Diagnosis of Ankylosing Spondylitis Hgb 10 on admission with prior baseline in 14s s/p 1L IVF bolus in ER w/ improvement in tachycardia and was maintained on maintenance fluid and GI was consulted/NPO Hgb to 7.9 on 01/22 and s/p 2u PRBC s/p EGD which noted oozing cratered duodenal ulcer in the duodenal bulb with abnormal surrounding mucosa. Treated with injection epi/coagulation for hemostasis w/ bipolar probe. H pylori testing obtained/path pending. Avoidance of NSAIDs IVF discontinued 01/23, given clear liquid diet Protonix gtt x 72 hours Diet advanced to full liquids 01/23, advancing to regular today. One darkened BM overnight, likely from old blood/hemoglobin stable and improved to 10.5 from 10/30 off of IV fluids. - transitioning to Protonix 40mg PO BID this evening (01/24) and will plan to continue such x 8 weeks (per GI could consider 2 weeks then once daily) - will need f/u with PCP/rheum about his ankylosing spondylitis Downgrade to med/surg planned Monitor labs in AM/any further bleeding (2) Gastrointestinal hemorrhage, unspecified: Plan: as above, 2nd to duodenal ulcer, s/p intervention (3) Anemia: Plan: Acute blood loss anemia secondary to GI bleed unspecified Transfuse 2 u prbc for today iron panel checked prior to transfusion w/o MELISSA -- stable CBC w/ hgb 9.7, IVF discontinued 01/23 and repeat hgb improved/stable at 10.5 CBC in AM to ensure remaining stable/no further bleeding w/ transition to oral protonix (4) Ankylosing spondylitis: Plan: Chronic controlled - will hold his Celebrex at this time -- avoiding NSAIDs at present for above Resumed sulfasalazine (5) HTN (hypertension): Plan: Hold Amlodipine until hemodynamics proven stable BP 119/75 Will resume amlodipine for AM as long as remaining stable vs holding until seen by PCP as BPs remaining stable off of such (6) Hypokalemia: Plan: low prior, replacement ordered. Suspect low this AM from PO intake/lasix w/ PRBC 01/22 and provided 40meq x 1 01/23 K 3.6 on AM labs and will monitor for stability, suspect stable as diet advanced as well Plan continued inpatient stay, transition to PO PPI BID this evening and planning for discharge tomorrow if no issues Admission and Anticipated Discharge Date Admission Date: January 21, 2023 Supervising Physician Co-Signing Physician Notes The patient was not seen by me. The chart was reviewed. Case discussed with SALONI Hernandez. Agree with assessment and plan Subjective Patient evaluated this morning, doing well. One darkened BM likely from old blood going through since no BM since procedure/intervention. Hgb stable. Discussed diet advancement/tolerated regular. Feeling well. HRs stable/improved on monitor and will plan to downgrade today. Letter for flight provided/no issues reported. Discussed changing to oral medication this evening and if labs stable will plan for dc in the AM. Questions/concerns addressed at this time. Physical Exam 2 Physical Exam: General: WD/WN male sitting up in bed, NAD HEENT: head normocephalic, atraumatic, mmm, trachea midline Resp; even/unlabored, no w/c/r, on room air CV: RRR, no significant m/r/g, no pitting edema/calf tenderness GI: +BS, soft/NT ; no garcia MSK/Neuro: no focal deficit, no slurred speech, answering questions appropriately strength equal bilaterally Psych: AOx3, cooperative with exam Results & Data Results & Data Vital Signs (Past 12 Hours) Vital Signs Temp Pulse Pulse Pulse Resp BP BP 01/24/23 03:19 36.9 C 97 H 18 124/72 01/23/23 23:30 37.0 C 78 18 122/82 01/23/23 22:00 92 H 01/23/23 19:46 36.8 C 91 H 18 128/85 Pulse Ox O2 Del Method 01/24/23 03:19 96 Room Air 01/23/23 23:30 99 Room Air 01/23/23 22:00 01/23/23 19:46 97 Room Air Laboratory Results 01/24/23 05:26 01/24/23 05:26 PG Care Time/CCT Total # of Minutes Spent Total Time Spent with Patient: Total time spent is greater than 50% in coordination of care (as documented) at patient's floor/unit and/or counseling patient: Coding Level of Care Code 67571 SUB INP/OBS CARE MIN Diagnoses Duodenal bulb ulcer K26.9 Gastrointestinal hemorrhage, unspecified K92.2 Anemia D64.9 Ankylosing spondylitis, unspecified site of spine M45.9 Ankylosing spondylitis location: unspecified site of spine HTN (hypertension) I10 Hypokalemia E87.6 (4) Ankylosing spondylitis Ankylosing spondylitis location: unspecified site of spine Qualified Code(s): M45.9 - Ankylosing spondylitis of unspecified sites in spine
[2023-01-24] MEDS: sulfaSALAzine 500 MG TABLET PO SCH ×2 (08:10→19:59)
[2023-01-24] MEDS: SUCRALFATE 1 GM TAB PO SCH ×4 (08:10→19:59)
[2023-01-24] MEDS: PANTOprazole 40 MG TAB PO SCH (19:59)
[2023-01-25 07:16] LABS: Hematocrit (blood only) 31.5 % (42.0-52.0); Hemoglobin 10.3 g/dl (14.0-18.0); Mean Corpuscular Hemoglobin 28.5 pg (25.0-34.0); Mean Corpuscular Hgb Conc 32.7 g/dL (32.0-36.0); Mean Platelet Volume 9.5 fL (9.4-12.4); Platelet Count 259 K/uL (130-400); RDW Coefficient of Variation 13.4 % (11.5-14.5); RDW Standard Deviation 40.9 fL (36.4-46.3); Red Blood Count 3.62 M/uL (4.70-6.10); White Blood Count 5.72 K/ul (4.8-10.8)
[2023-01-25 07:35] LABS: BUN Creatinine Ratio 11.7 (10-20); Calcium 8.5 mg/dl (8.6-10.3); Creatinine Clr Calc Pharmacy 125.7 ml/min; Est GFR (African American) 124.7 ml/min; Est GFR (Non-African American) 107.6 ml/min; Magnesium 2.1 mg/dl (1.7-2.4); Potassium 3.4 mmol/L (3.5-5.1)
[2023-01-25] MEDS: sulfaSALAzine 500 MG TABLET PO SCH (08:50)
[2023-01-25] MEDS: SUCRALFATE 1 GM TAB PO SCH (08:51)
[2023-01-25] MEDS: PANTOprazole 40 MG TAB PO SCH (08:51)
[2023-01-25] MEDS ORDERED: POTASSIUM CHLORIDE CRTAB 20 MEQ TABCR PO STA (09:00)
--- NOTE | 2023-01-25 09:01 | Discharge Summary ---
Date of Service January 25, 2023 Admission HPI Per Admitting Provider 32 YOM dawna from [facility], here as a student. Reports getting majority of care through PCP at [place]. He reports that he has medical history of Ankylosing Spondylitis and HTN. He is being followed by Rheumatology for his . Patient reports that over the past 2 days he has noticed black dark stools. These originally started as regular stool and progressed to being more soft. He endorses 3 black stools since yesterday. This is not associated with any abdominal pain or burning. Is associated with mild nausea without vomiting that started this afternoon. Patient reports feeling HR being little faster, but is without dizziness, feeling of going to pass out or weakness/fatigue. Patient endorses that he has not taken any other medications to include Motrin, Advil, or extra doses of Celebrex for back pain. He endorses that this has never happened before, denies other symptoms of abdominal pain, ulcerations in mouth or rectum, or periods of constipation and/or diarrhea. Reports no family hi story of cancer. Patient will be admitted to Medical Telemetry, as PPI infusion has already been started by the EMD, will continue this. NPO with GI consultation for evaluation for UGI vs. complications from (UC/Chron's). CODE: FULL Admission Exam Per Admitting Provider PHYSICAL EXAM: General: awake, alert, no apparent distress Head: Normocephalic, atraumatic ENT: PERRLA, EOMI, no pharyngeal exudate, mucous membranes moist Neuro: AAO x 3, speech clear and appropriate, strength intact bilaterally 5/5, sensation intact and equal all extremities and dermatomes, no pronator drift Chest: equal rise and fall of the chest, no accessory muscle use, no heaves or thrills, Clear to auscultation, on room air, Cardiac: Regular rate and rhythm, telemetry reviewed- sinus tachycardia, skin warm dry, cap refill <3 seconds, peripheral pulses +2 no JVD, no murmur, no edema GI: NABS x 4 quadrants, soft, nontender to palpation, no rebound, guarding or tenderness : Spontaneously voiding, no pain, no CVA tenderness, Extremities: Normal inspection, no peripheral edema or erythema, calfs nontender to palpation Psych: Normal mood and affect Skin: no rash or erythema Principal Diagnosis GIB, Duodenal Ulcer Discharge Exam General: WD/WN male sitting up in bed, NAD HEENT: head normocephalic, atraumatic, mmm, trachea midline Resp; even/unlabored, no w/c/r, on room air CV: RRR, no significant m/r/g, no pitting edema/calf tenderness GI: +BS, soft/NT ; no garcia MSK/Neuro: no focal deficit, no slurred speech, answering questions appropriately strength equal bilaterally Psych: AOx3, cooperative with exam Discharge Data Allergies Allergy/AdvReac Type Severity Reaction Status Date / Time No Known Allergies Allergy Verified 01/21/23 17:55 Consultations 01/21/23 17:29 ED Decision to Admit Stat 01/21/23 18:39 Consult Gastroenterology Routine Procedures Performed Operation Date: 01/22/23 16:30 Actual Procedures p EGD Hemostasis - Artur Carranza MD Ordered Studies Chest X-Ray 01/21/23 17:46 SINGLE VIEW CHEST CLINICAL HISTORY: Tachycardia. FINDINGS: An AP, portable, upright chest radiograph is obtained. No prior studies are available for comparison at the time of dictation. The cardiomediastinal silhouette is unremarkable. The lungs and pleural spaces are clear. No pneumothorax is seen. The bony thorax is grossly intact. IMPRESSION: No active disease in the chest. ACT 112: Negative or not required by law. Electronically signed by: Clint Jennings M.D. 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 Treated with injection epi/coagulation for hemostasis w/ bipolar probe. H pylori testing negative. No malignancy on pathology.. Avoidance of NSAIDs recommended Continued PPI gtt x 72 hours, transitioned to Protonix 40mg PO BID and hgb improved/stable without further bleeding reported. Tolerated advancement of diet, no CP/SOB, hypoxia/fever and discussed continued PPI BID at discharge 6-8 weeks w/ carafate. Discussed while GI rec for 2 weeks, given appearance /duodenal ulcer would utilize carafate/protonix AT LEAST a month, maybe 6 weeks then go to once daily. May need to consider lifelong BID if needing to go back on Celebrex for ankylosing spondylitis but discussed to follow up with provider for discussion and STOPPED this at discharge for now. 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 (2) Gastrointestinal hemorrhage, unspecified: as above, 2nd to duodenal ulcer, s/p intervention (3) Anemia: Acute blood loss anemia secondary to GI bleed unspecified hgb stable and improved on repeat. got 2u PRBC while inpatient iron panel checked prior to transfusion w/o MELISSA -- stable w/o significant MELISSA Repeat hgb stable at 10.3 on repeat (4) Ankylosing spondylitis: Chronic, controlled at baseline. No acute flare.. Resumed sulfasalazine. Held celebrex 2nd to duodenal ulcer as above and rec off at discharge until completing treatment for above/discussion with his outpatient providers (5) HTN (hypertension): Held Amlodipine on admission due to GIB as above and BPs stable/improved and to continue amlodipine daily at discharge (6) Hypokalemia: low prior, replacement ordered. Suspect 2nd to PO intake/liquid diet initially, replacement ordered and normalized but checked again for stability and slightly low at 3.4 and additional PO prior to discharge. F/u PCP Plan discharged home on PPI BID/carafate. Outpatient follow up primary care and gastroenterology. HOLD/STOPPED Celebrex as above Total Time Total Time Spent Total Time Spent (In Minutes): 45 Discharge Plan Discharge Items Patient Disposition: Home - Self-Care Reason For Visit: DARK STOOLS Discharge Diagnosis: Duodenal Ulcer, GI bleeding Goals: You have been hospitalized for an urgent problem which required surgery. During your stay at [facility], we have made an effort to correct the problem that brought you to the hospital while keeping you as comfortable as possible. Surgery and medications were used to bring your condition under control and your discharge instructions will include directions for any medications you should take after leaving the hospital. Please make sure to follow the advice of your surgeon regarding follow up with the surgeon and with your primary care provider. Activity: As commented below Non-emergency contact: Primary Care Provider and Logging Contractor Call non-emergency contact if: you have any medication questions, your symptoms worsen, your pain is not controlled and you have a fever Follow-up/Referrals: Artur Carranza MD [Physician] - Julio Alexandra MD [Primary Care Provider] - Diet: Heart Healthy Addtl Attending Provider Instructions: You have been hospitalized for darkened stools and found to have a GI bleed, likely from your Celebrex use for ankylosing spondylitis. This medication has been held for now and should talk with your doctor prior to resuming this medication to prevent risk of bleeding. Gastroenterology was consult and you underwent endoscopy which showed a duodenal ulcer (portion of your bowel after your stomach) which was treated with injection and cauterization and you were on a Protonix drip for 72 hours and continued on 40mg by mouth twice daily which will be continued for another 4-6 weeks at discharge along with Carafate four times daily to help with the lining of your GI tract. You should follow up with your primary care in the next 7-10 days to follow up as well as gastroenterology. You should return to the ER with any further darkened bowels, shortness of breath, chest pain, dizziness, or any other symptoms concerning for you. It has been a pleasure being a part of the medical team providing for you while you have been in the hospital. Take care! Pending Studies at Discharge: No Stand-Alone Forms: My [facility], Smoking Cessation Medications and DC Order Prescriptions: New pantoprazole 40 mg Tablet,Delayed Release (Dr/Ec) 40 mg PO BID 28 Days Qty: 56 1RF sucralfate 1 gram Tablet 1 g PO QID 28 Days Qty: 112 0RF Continued amlodipine 10 mg tablet 10 mg PO DAILY sulfasalazine 500 mg tablet 1,000 mg PO BID Rx Instructions: TAKE WITH FOOD Discontinued celecoxib 100 mg capsule 100 mg PO BID Qty: 180 2RF Discharge Orders: Discharge Order (Routine); Ordered 01/25/23 Ordered By: Marlena Blanchard/Other Patient Handouts: GI Bleeding Causes and Tests Admission Data Admit Date/Time: 01/21/23 18:45 Attending Provider: Jaspreet Malcolm Admit Provider: Xiang Mcnally Primary Care Provider: Julio Alexandra Other Providers: Xiang Mcnally; CaseJustin Other Interventions: Discharge Summary Assessment (RN) Last Done: 01/22/23 16:04 Supervising Physician Co-Signing Physician Notes The patient was not seen by me. The chart was reviewed. Case discussed with SALONI Hernandez. Agree with assessment and plan. The patient is medically stable and can be discharged home today, January 25 Coding Level of Care Code 02602 INP/OBS DISCH >30 MIN Diagnoses Duodenal bulb ulcer K26.9 Gastrointestinal hemorrhage, unspecified K92.2 Anemia D64.9 Ankylosing spondylitis, unspecified site of spine M45.9 Ankylosing spondylitis location: unspecified site of spine HTN (hypertension) I10 Hypokalemia E87.6
--- NOTE | 2023-01-26 17:03 | Emergency Department Note ---
Impression & Plan Ankylosing spondylitis, Gastrointestinal hemorrhage, unspecified ED Provider Note NAME: ANGEL OHLLIS AGE: 32 SEX: M : 1990 ARRIVES VIA: Walk-In INFORMANT: Patient, ED PROVIDER(S): Yoan Moreira MD CHIEF COMPLAINT: Possible GI bleeding MEDICAL DECISION MAKING: Patient presents due to concern for epigastric pain and dark stools with a positive fecal occult blood test prior to arrival. IV was established and blood was obtained the patient's hemoglobin is noted to be 10 and has had a 4 point drop since his most recent time being evaluated here in the department. Patient's blood work shows a normal white count hemoglobin of 10.5. Platelet count is unremarkable. Patient does have an elevated BUN/creatinine ratio of 30. LFTs and lipase negative. Given the drop in the patient's hemoglobin with associated GI bleeding I did speak the on-call hospitalist Dr. Mcnally and the patient was admitted to the medicine service. Patient was ordered PPI bolus and drip. Discussion w/ other healthcare providers: Dr. Mcnally inpatient medicine service Prior /Outside records reviewed: None Differential diagnosis: Diverticulitis, AVM, coagulopathy, colitis, inflammatory bowel disease, malignancy, esophagitis, peptic ulcer disease, variceal bleed, gastritis, fissure, hemorrhoids, as well as other pathologies. Diagnostics, as interpreted by me: ECG: None Cardiac monitoring: An order was placed for continuous cardiac monitoring. The monitor shows a rate of 112 with sinus rhythm. Patient was placed on pulse oximetry Medical decision rules: None Imaging studies: None HPI: Patient presents as a referral from [facility] due to concern for possible GI bleeding. The patient had noticed dark stools several days ago and thus presented to [facility] today. The patient reportedly had a positive occult fecal blood test prior to arrival. The patient does complain of some epigastric discomfort. No nausea vomiting. Patient denies any chest pains or shortness of breath. Patient does relate that he does take chronic Celebrex as well as sulfasalazine for known history of ankylosing spondylitis. The patient states that he is taking his for approximately 4 years and recently upped his dose back in May. Patient does not take any other blood thinners antiplatelets or NSAIDs. Patient also does have a history of hypertension for which she does take medication PAST MEDICAL HISTORY: See Below PAST SURGICAL HISTORY: See Below SOCIAL HISTORY: See Below HOME MEDICATIONS: See Below ALLERGIES: See Below VITALS: See Below PHYSICAL EXAMINATION: GENERAL: NAD, non-toxic. Wearing glasses. EYE EXAM: Normal conjunctiva. PERRL, no anisocoria and EOM's grossly intact w/o pain. OROPHARYNX: Moist mucus membranes, grossly normal dentition. NECK: Supple, no nuchal rigidity, no adenopathy, non-tender. No signs of meningismus. FROM of the neck with good chin to chest and neck extension. No stridor. LUNGS: Clear to auscultation. Normal chest wall mechanics. HEART: Tachycardic and regular, no MRG. ABDOMEN: Abdomen soft, epigastric discomfort without peritonitis no lower abdominal pain. No masses, no rebound or guarding. BACK: No CVA TTP. SKIN: No rashes and no bruising. UPPER EXTREMITIES: Upper extremities are grossly normal. LOWER EXTREMITIES: Grossly normal, no edema. NEURO EXAM: A&O x3, cranial nerves II-XII grossly intact, normal speech, moves all 4 extremities. 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 Current Living Situation: Alone Feels Safe at Home: Yes Assistive Devices: Glasses Allergies Allergies Allergy/AdvReac Type Severity Reaction Status Date / Time No Known Allergies Allergy Verified 01/21/23 17:55 Home Meds Home Medications Medication Instructions Recorded Confirmed amlodipine 10 mg tablet 10 mg PO DAILY 06/02/22 01/21/23 sulfasalazine 500 mg tablet 1,000 mg PO BID 01/21/23 01/21/23 Previous Rx's Medication Instructions Recorded pantoprazole 40 mg tablet,delayed 40 mg PO BID 4 weeks #56 tabs 01/25/23 release sucralfate 1 gram tablet 1 g PO QID 4 weeks #112 tabs 01/25/23 Results & Data (ED) Home Medications Current Medication List: was personally reviewed by me Laboratory Data Attestation: I reviewed the patient's lab results. 01/25/23 06:46 01/25/23 06:46 Lab Results 01/21/23 01/21/23 Range/Units 16:13 18:06 WBC 7.14 (4.8-10.8) K/ul RBC 3.71 L (4.70-6.10) M/uL Hgb 10.5 L (14.0-18.0) g/dl Hct 31.3 L (42.0-52.0) % MCV 84.4 (80.0-100.0) fL MCH 28.3 (25.0-34.0) pg MCHC 33.5 (32.0-36.0) g/dL RDW Std Deviation 38.7 (36.4-46.3) fL RDW Coeff of [place] 12.8 (11.5-14.5) % Plt Count 310 (130-400) K/uL MPV 10.0 (9.4-12.4) fL Immature Gran % (Auto) 0.1 % Neut % (Auto) 67.5 % Lymph % (Auto) 26.2 % [place] % (Auto) 5.5 % Eos % (Auto) 0.3 % Baso % (Auto) 0.4 % Neut # (Auto) 4.82 (1.40-6.50) K/uL Lymph # (Auto) 1.87 (1.20-3.40) K/uL [place] # (Auto) 0.39 (0.11-0.59) K/uL Eos # (Auto) 0.02 (0.00-0.50) K/uL Baso # (Auto) 0.03 (0.00-0.20) K/uL Immature Gran # (Auto) 0.01 (0.01-0.20) K/uL Sodium 138 (136-145) mmol/L Potassium 3.7 (3.5-5.1) mmol/L Chloride 105 (98-107) mmol/L Carbon Dioxide 26 (21-32) mmol/L Anion Gap 7 (3-11) BUN 25 H (6-23) mg/dl Creatinine 0.82 (0.6-1.4) mg/dl Est Cr Clr Drug Dosing 142.4 ml/min Est GFR ( Amer) 136.6 ml/min Est GFR (Non-Af Amer) 117.8 ml/min BUN/Creatinine Ratio 30.5 H (10-20) Glucose 103 H (70-99(Fasting)) mg/dl Calcium 8.5 L (8.6-10.3) mg/dl Total Bilirubin 0.3 (0.2-1.0) mg/dl AST 15 (13-39) U/L ALT 18 (7-52) U/L Alkaline Phosphatase 77 (34-104) U/L Total Protein 7.0 (6.0-8.3) gm/dl Albumin 4.3 (3.4-5.0) gm/dl Globulin 2.7 (2.5-4.0) gm/dl Albumin/Globulin Ratio 1.6 (0.9-2) Lipase 18 (11-82) U/L Blood Type AB Positive Antibody Screen NEGATIVE Crossmatch See Detail Administered Medications Discontinued Medications Epinephrine HCl (Epinephrine 1.5" Ndl 0.1 Mg/Ml Syr) Confirm Administered Dose 1 mg IV .STK-MED ONE Stop: 01/22/23 15:35 Last Admin: 01/22/23 17:06 Dose: Not Given Documented By: SALOMÓN Furosemide (Furosemide 40 Mg/4 Ml Vial) 40 mg IV ONE ONE Stop: 01/22/23 11:17 Last Admin: 01/22/23 12:16 Dose: 40 mg Documented By: SALOMÓN Glycopyrrolate (Glycopyrrolate 0.2 Mg/Ml Vial) Confirm Administered Dose 0.4 mg .ROUTE .STK-MED ONE Stop: 01/22/23 15:17 Last Admin: 01/22/23 17:04 Dose: Not Given Documented By: SALOMÓN Sodium Chloride (Nss) 1,000 mls @ 999 mls/hr IV .Q1H1M MINE Stop: 01/21/23 18:30 Last Infusion: 01/21/23 19:48 Dose: Infused Documented By: Admin: 01/21/23 17:52 Dose: 999 mls/hr Documented By: YANIRA Pantoprazole Sodium 40 mg/ (Syringe) 10 mls @ 5 mls/min IV NOW STA Stop: 01/21/23 17:27 Last Admin: 01/21/23 17:53 Dose: 5 mls/min Documented By: YANIRA Pantoprazole Sodium 40 mg/ (Dextrose) 100 mls @ 20 mls/hr IV Q5H STA Stop: 01/21/23 22:25 Last Infusion: 01/21/23 23:04 Dose: Infused Documented By: Admin: 01/21/23 17:52 Dose: 8 mg/hr, 20 mls/hr Documented By: YANIRA Lactated Ringer's (Lr) 1,000 mls @ 90 mls/hr IV .Q11H7M MINE Stop: 02/20/23 20:54 Last Infusion: 01/23/23 08:01 Dose: Infused Documented By: Admin: 01/23/23 06:20 Dose: Not Given Documented By: Admin: 01/23/23 05:17 Dose: 90 mls/hr Documented By: Infusion: 01/22/23 19:42 Dose: Infused Documented By: Admin: 01/22/23 08:35 Dose: 90 mls/hr Documented By: Infusion: 01/22/23 08:08 Dose: Infused Documented By: Admin: 01/21/23 21:01 Dose: 90 mls/hr Documented By: Pantoprazole Sodium 40 mg/ (Dextrose) 100 mls @ 20 mls/hr IV Q5H MINE Stop: 01/24/23 17:00 Last Infusion: 01/24/23 18:31 Dose: Infused Documented By: Admin: 01/24/23 15:19 Dose: 8 mg/hr, 20 mls/hr Documented By: Infusion: 01/24/23 14:49 Dose: Infused Documented By: Admin: 01/24/23 09:49 Dose: 8 mg/hr, 20 mls/hr Documented By: Infusion: 01/24/23 09:34 Dose: Infused Documented By: Admin: 01/24/23 04:34 Dose: 8 mg/hr, 20 mls/hr Documented By: Infusion: 01/24/23 04:31 Dose: Infused Documented By: Admin: 01/24/23 02:20 Dose: 8 mg/hr, 20 mls/hr Documented By: Infusion: 01/24/23 02:19 Dose: Infused Documented By: Admin: 01/23/23 19:09 Dose: 8 mg/hr, 20 mls/hr Documented By: Infusion: 01/23/23 18:09 Dose: Infused Documented By: Admin: 01/23/23 13:09 Dose: 8 mg/hr, 20 mls/hr Documented By: Infusion: 01/23/23 12:25 Dose: Infused Documented By: Admin: 01/23/23 07:25 Dose: 8 mg/hr, 20 mls/hr Documented By: Infusion: 01/23/23 07:25 Dose: Infused Documented By: Admin: 01/23/23 05:35 Dose: Not Given Documented By: Admin: 01/23/23 02:24 Dose: 8 mg/hr, 20 mls/hr Documented By: Infusion: 01/23/23 02:08 Dose: Infused Documented By: Admin: 01/22/23 21:08 Dose: 8 mg/hr, 20 mls/hr Documented By: Infusion: 01/22/23 21:08 Dose: Infused Documented By: Admin: 01/22/23 17:36 Dose: 8 mg/hr, 20 mls/hr Documented By: Infusion: 01/22/23 15:56 Dose: Infused Documented By: Admin: 01/22/23 10:56 Dose: 8 mg/hr, 20 mls/hr Documented By: Infusion: 01/22/23 09:19 Dose: Infused Documented By: Admin: 01/22/23 04:19 Dose: 8 mg/hr, 20 mls/hr Documented By: Infusion: 01/22/23 03:19 Dose: Infused Documented By: Admin: 01/21/23 22:19 Dose: 8 mg/hr, 20 mls/hr Documented By: AB Potassium Chloride (K Pradip / Wtr) 10 meq in 100 mls @ 100 mls/hr IV Q1H MINE Stop: 01/22/23 09:59 Last Infusion: 01/22/23 13:47 Dose: Infused Documented By: Admin: 01/22/23 12:10 Dose: 100 mls/hr Documented By: Infusion: 01/22/23 09:35 Dose: Infused Documented By: Admin: 01/22/23 08:35 Dose: 100 mls/hr Documented By: SALOMÓN Lidocaine HCl (Lidocaine 2% 2 Ml Vial/Amp(20mg/Ml)) Confirm Administered Dose 4 ml INFIL .ST-MED ONE Stop: 01/22/23 15:17 Last Admin: 01/22/23 17:05 Dose: Not Given Documented By: SALOMÓN Ondansetron HCl (Ondansetron Inj 2 Mg/Ml 2 Ml Vial) Confirm Administered Dose 4 mg .ROUTE .STK-MED ONE Stop: 01/22/23 15:17 Last Admin: 01/22/23 17:05 Dose: Not Given Documented By: SALOMÓN Pantoprazole Sodium (Pantoprazole 40 Mg Tab) 40 mg PO BID MINE Stop: 02/23/23 20:59 Last Admin: 01/25/23 08:51 Dose: 40 mg Documented By: Admin: 01/24/23 19:59 Dose: 40 mg Documented By: TATYANA Potassium Chloride (Potassium Chloride Crtab 20 Meq Tabcr) 40 meq PO NOW STA Stop: 01/23/23 07:49 Last Admin: 01/23/23 08:00 Dose: 40 meq Documented By: ALLI Potassium Chloride (Potassium Chloride Crtab 20 Meq Tabcr) 20 meq PO NOW STA Stop: 01/25/23 09:01 Last Admin: 01/25/23 09:17 Dose: 20 meq Documented By: ALEXIS Propofol (Propofol Iv Emulsion 10 Mg/Ml 20 Ml Vial) Confirm Administered Dose 400 mg IV .[facility] ONE Stop: 01/22/23 15:17 Last Admin: 01/22/23 17:05 Dose: Not Given Documented By: SALOMÓN Propofol (Propofol Iv Emulsion 10 Mg/Ml 20 Ml Vial) Confirm Administered Dose 200 mg IV .[facility] ONE Stop: 01/22/23 15:40 Last Admin: 01/22/23 17:06 Dose: Not Given Documented By: SALOMÓN Sucralfate (Sucralfate 1 Gm Tab) 1 gm PO QID MINE Stop: 02/21/23 16:59 Last Admin: 01/25/23 08:51 Dose: 1 gm Documented By: Admin: 01/24/23 19:59 Dose: 1 gm Documented By: Admin: 01/24/23 17:47 Dose: 1 gm Documented By: Admin: 01/24/23 13:12 Dose: 1 gm Documented By: Admin: 01/24/23 08:10 Dose: 1 gm Documented By: Admin: 01/23/23 21:11 Dose: 1 gm Documented By: Admin: 01/23/23 17:39 Dose: 1 gm Documented By: Admin: 01/23/23 13:09 Dose: 1 gm Documented By: Admin: 01/23/23 08:00 Dose: 1 gm Documented By: Admin: 01/22/23 20:31 Dose: 1 gm Documented By: Admin: 01/22/23 17:39 Dose: 1 gm Documented By: SALOMÓN Sulfasalazine (Sulfasalazine 500 Mg Tablet) 1,000 mg PO BID MINE Stop: 02/22/23 20:59 Last Admin: 01/25/23 08:50 Dose: 1,000 mg Documented By: Admin: 01/24/23 19:59 Dose: 1,000 mg Documented By: Admin: 01/24/23 08:10 Dose: 1,000 mg Documented By: Admin: 01/23/23 21:11 Dose: 1,000 mg Documented By: SLC Imaging Data Radiologist's Impression: Chest X-Ray 01/21/23 17:46 SINGLE VIEW CHEST CLINICAL HISTORY: Tachycardia. FINDINGS: An AP, portable, upright chest radiograph is obtained. No prior studies are available for comparison at the time of dictation. The cardiomediastinal silhouette is unremarkable. The lungs and pleural spaces are clear. No pneumothorax is seen. The bony thorax is grossly intact. IMPRESSION: No active disease in the chest. ACT 112: Negative or not required by law. Electronically signed by: Clint Jennings M.D. 01/21/2023 6:52 PM Discharge Plan Visit Data Chief Complaint: GI Assessment Stated Complaint: DIARRHEA, BLACK STOOL, HYPOTENSION ED Provider: Yoan Moreira Discharge Problem: Ankylosing spondylitis, Gastrointestinal hemorrhage, unspecified Patient Disposition: Admitted As Inpatient Discharge Instructions Interventions: ED Discharge Assessment Last Done: 01/21/23 20:55
== END 2023-01-25 13:40 | disposition home or self-care (01) | DRG 378 ==
LOC: ED 14:52 → SUATTDRO 18:45 → EDINP 18:45 → 2N 20:55 → 3W 01-24 21:04